=== PATIENT | female | born 2005 | race Caucasian/White ===

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

== ENCOUNTER 2023-07-19 21:23 | Emergency (ER) | payer OTHER ==
[2023-07-19 21:35] VITALS: BP 133/74; O2SAT 100
[2023-07-19 21:42] LABS: BILIRUBIN,URINE NEGATIVE (NEGATIVE); GLUCOSE, URINE (UA) NEGATIVE (NEGATIVE); KETONES,URINE (UA) NEGATIVE (NEGATIVE); LEUKOCYTE ESTERASE, URINE SMALL (NEGATIVE); NITRITE,URINE NEGATIVE (NEGATIVE); OCCULT BLOOD,URINE LARGE (NEGATIVE); PH,URINE 6.5 PH (5.0-7.5); PROTEIN,URINE 100 mg/dL (NEGATIVE); UROBILINOGEN,URINE 0.2 (NORMAL) E.U./dL (NORMAL)
[2023-07-19 21:44] LABS: CLARITY,URINE HAZY (CLEAR); HCG UR QUAL NEGATIVE
[2023-07-19] MEDS ORDERED: NITROFURANTOIN MACRO 100 MG CAPSULE PO STA (21:51)
[2023-07-19] MEDS ORDERED: PHENAZOPYRIDINE 100 MG TABLET PO STA (21:52)
--- NOTE | 2023-07-19 21:52 | ED Physician Documentation ---
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 Since then gets UTIs about once a year. Presents with urinary frequency starting last night. 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: None : None HEENT: None Psych: None Musculoskeletal: None Derm: None - Past Surgical History Past Surgical History: No - Present Medications Home Medications: Ambulatory Orders Medication Instructions Recorded Confirmed Control Pill 1 tab ORAL DAILY 10/01/19 08/09/21 Ibuprofen [Motrin] 600 mg PO Q6H PRN #30 tab 10/26/20 08/09/21 Nitrofurantoin [Macrobid] 100 mg PO BID #10 cap 03/14/22 Nitrofurantoin [Macrobid] 1 cap PO BID #10 cap 07/19/23 Phenazopyridine HCl [Pyridium] 200 mg PO TID PRN #6 tablet 07/19/23 - Allergies Allergies/Adverse Reactions: Allergies Allergy/AdvReac Type Severity Reaction Status Date / Time No Known Drug Allergies Allergy Verified 07/19/23 21:27 - Social History Does the pt smoke?: No Smoking Status: Never smoker Does the pt drink ETOH?: No Does the pt have substance abuse?: No - Immunizations Immunizations are current?: Yes - POLST Patient has POLST: No PD ED PE NORMAL - Vitals Vital signs reviewed: Yes - General General: Alert and oriented X 3, No acute distress - Abdomen Abdomen: Soft, Non tender - Back Back: No CVA TTP - Neuro Neuro: Alert and oriented X 3 Results - Vitals Vitals: Vital Signs - 24 hr 07/19/23 21:25 Temperature 36.0 C L Heart Rate 86 Respiratory 20 Rate Blood Pressure 133/74 H O2 Saturation 100 Oxygen O2 Source Room air - Labs Labs: Laboratory Tests 07/19/23 21:33 Urine Color YELLOW Urine Clarity HAZY Urine pH 6.5 Ur Specific [place] 1.020 Urine Protein 100 H Urine Glucose (UA) NEGATIVE Urine Ketones NEGATIVE Urine Occult Blood LARGE H Urine Nitrite NEGATIVE Urine Bilirubin NEGATIVE Urine Urobilinogen 0.2 (NORMAL) Ur Leukocyte Esterase SMALL H Ur Microscopic Review INDICATED Urine Culture Comments Not Reportable Urine HCG, Qual NEGATIVE Departure - Departure Disposition: 01 Home, Self Care Clinical Impression: Cystitis Condition: Good Record reviewed to determine appropriate education?: Yes Instructions: ED UTI Cystitis Female Prescriptions: Nitrofurantoin [Macrobid] 1 cap PO BID #10 cap Phenazopyridine HCl [Pyridium] 200 mg PO TID PRN #6 tablet PRN Reason: dysuria Comments: We will culture your urine, the results should be done in 48-72 hours. If an antibiotic change is necessary we will call you. Return if worse in the meantime, especially if you develop increasing flank pain, fevers, or cannot keep down the medication.
[2023-07-19 22:01] LABS: BACTERIA,URINE Moderate /HPF (None Seen); RBC,URINE TNTC /HPF (0-5); SQUAMOUS EPITHELIAL CELL,UR FEW Squamous (<= Few); WBC,URINE >25 /HPF (0-5)
== END 2023-07-19 22:10 | disposition home or self-care (01) ==
LOC: ED 21:23
DX: N30.90 Cystitis, unspecified without hematuria (principal)
CPT/HCPCS: 81001; 81025; 87077; 87086; 99283; A9270; 81003

== ENCOUNTER 2023-12-28 11:32 | Emergency (ER) | payer OTHER ==
[2023-12-28 11:56] VITALS: BP 149/101; O2SAT 100
[2023-12-28 12:07] LABS: BILIRUBIN,URINE NEGATIVE (NEGATIVE); GLUCOSE, URINE (UA) NEGATIVE (NEGATIVE); KETONES,URINE (UA) NEGATIVE (NEGATIVE); LEUKOCYTE ESTERASE, URINE NEGATIVE (NEGATIVE); NITRITE,URINE NEGATIVE (NEGATIVE); OCCULT BLOOD,URINE NEGATIVE (NEGATIVE); PH,URINE 6.5 PH (5.0-7.5); PROTEIN,URINE NEGATIVE (NEGATIVE); UROBILINOGEN,URINE 0.2 (NORMAL) E.U./dL (NORMAL)
[2023-12-28 12:09] LABS: CLARITY,URINE CLEAR (CLEAR); HCG UR QUAL NEGATIVE
--- NOTE | 2023-12-28 12:15 | ED Physician Documentation ---
History of Present Illness - Stated complaint Stated Complaint: FEMALE - Chief complaint Chief Complaint: UTI - History obtained from History obtained from: Patient - History of Present Illness Timing: How many weeks ago (2) Pain level max: 2 Pain level now: 2 - Additonal information Additional information: Patient is a 18-year-old female who presents to the emergency department with dysuria ongoing for the past 2 weeks. She states she was seen at an urgent care and given Macrobid. She states her symptoms improved but then developed symptoms since stopping the Macrobid. She is not having dysuria and frequency. States has a history of ureteral reflux, has recurrent UTIs. She is currently on her menses. No vaginal discharge. 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 : Chronic bladder infection HEENT: None Psych: None Musculoskeletal: None Derm: None - Past Surgical History Past Surgical History: No Ortho: Arthroscopic surgery - Present Medications Home Medications: Ambulatory Orders Medication Instructions Recorded Confirmed Norethindrone-E.estradiol-Iron 1 tab ORAL DAILY 12/28/23 12/28/23 [Pablo 24 Fe 1 mg-20 Mcg Tablet] Phenazopyridine HCl [Pyridium] 200 mg PO TID PRN #6 tablet 12/28/23 cephALEXin [Keflex] 500 mg PO Q6H #20 cap 12/28/23 - Allergies Allergies/Adverse Reactions: Allergies Allergy/AdvReac Type Severity Reaction Status Date / Time No Known Drug Allergies Allergy Verified 12/28/23 11:46 - Social History Does the pt smoke?: No Smoking Status: Never smoker Does the pt drink ETOH?: No Does the pt have substance abuse?: No - Immunizations Immunizations are current?: Yes - POLST Patient has POLST: No PD ED PE NORMAL - Vitals Vital signs reviewed: Yes - General General: Alert and oriented X 3, No acute distress - HEENT HEENT: Moist mucous membranes - Respiratory Respiratory: No respiratory distress - Abdomen Abdomen: Soft, Non tender, Non distended - Back Back: No CVA TTP, No spinal TTP - Derm Derm: Warm and dry - Neuro Neuro: Alert and oriented X 3 - Psych Psych: Normal mood, Normal affect Results - Vitals Vitals: Vital Signs - 24 hr 12/28/23 11:47 Temperature 36.5 C Heart Rate 82 Respiratory 18 Rate Blood Pressure 149/101 H O2 Saturation 100 Oxygen O2 Source 0 - Labs Labs: Laboratory Tests 12/28/23 12:00 Urine Color LT. YELLOW Urine Clarity CLEAR Urine pH 6.5 Ur Specific [place] 1.010 Urine Protein NEGATIVE Urine Glucose (UA) NEGATIVE Urine Ketones NEGATIVE Urine Occult Blood NEGATIVE Urine Nitrite NEGATIVE Urine Bilirubin NEGATIVE Urine Urobilinogen 0.2 (NORMAL) Ur Leukocyte Esterase NEGATIVE Ur Microscopic Review NOT INDICATED Urine Culture Comments NOT INDICATED Urine HCG, Qual NEGATIVE PD Medical Decision Making - ED course Complexity details: reviewed results, re-evaluated patient, considered differential, d/w patient ED course: The patient's urinalysis does not show any evidence of infection, but given her symptoms, increasing urinary frequency, dysuria and history of vesicular ureteral reflux, we will err on the side of caution and treat her. Discussed the risks and benefits of antibiotic therapy versus watchful waiting. Patient elects antibiotic therapy. Patient is well-appearing, nontoxic. Afebrile. Patient counseled regarding signs and symptoms for which I believe and urgent re-evaluation would be necessary. Patient with good understanding of and agreement to plan and is comfortable going home at this time This document was made in part using voice recognition software. While efforts are made to proofread this document, sound alike and grammatical errors may occur. Departure - Departure Disposition: 01 Home, Self Care Clinical Impression: Dysuria Condition: Good Instructions: ED Dysuria Uncertain Cause Follow-Up: your,doctor in 1 week [Other] Prescriptions: cephALEXin [Keflex] 500 mg PO Q6H #20 cap Phenazopyridine HCl [Pyridium] 200 mg PO TID PRN #6 tablet PRN Reason: dysuria Comments: [facility] [place] Please take all antibiotics until gone. Please follow-up with your doctor for further care. As we discussed your urinalysis does not show any infection at this time, but given your history, we will treat you with antibiotics.
== END 2023-12-28 12:46 | disposition home or self-care (01) ==
LOC: ED 11:32
DX: R30.0 Dysuria (principal)
CPT/HCPCS: 81001; 81003; 81025; 87086; 99283